=== PATIENT | female | born 1980 | race Caucasian/White ===

== ENCOUNTER 2016-06-15 12:36 | Emergency (ER) ==
[2016-06-15] MEDS ORDERED: DECADRON IM ONE (13:55)
--- NOTE | 2016-06-15 14:06 | PROVIDER DOCUMENTATION ---
HPI-Respiratory General - General Chief Complaint: Cold Symptoms Stated Complaint: WEAK,COUGHING,CONGESTED,BODYACHES Time Seen by Provider: 06/15/16 13:55 Source: patient Allergies/Adverse Reactions: Patient Allergies Allergy/AdvReac Type Severity Reaction Status Date / Time No Known Allergies Allergy Verified 06/15/16 13:12 Home Medications: Home Medication List Medication Instructions Recorded Confirmed Last Taken Type Azithromycin [Zithromax Z-Jose] 250 mg PO DIRECTED #1 pkg 06/15/16 Unknown Rx Guaifenesin/Codeine Phosphate 5 ml PO HS PRN PRN #120 liquid 06/15/16 Unknown Rx [Codeine-Guaifen 10-100 mg/5 ml] Omeprazole 10 mg PO 06/15/16 06/14/16 History - History of Present Illness-Resp Nature of Presenting Problem: 36 yo Bf with 2 days history of cough, today felt feverish and measured temp to 101. Has muscle aches and cough, mild sore throat. Quality of Pain: reports: none Severity in ED: reports: mild Onset/Duration: reports: 24 hours ago Timing: reports: still present Context: reports: other (sick exposure) Cough Quality/Degree: reports: mild Current Respiratory Medication Therapy: Initiated none Modifying Factors: improves with: nothing Associated Symptoms: reports: cough, fever/chills, flu-like symptoms, muscle/ bodyaches. denies: earache, facial pain, shortness of breath, sinus pain, short of breath, wheezing Similar Symptoms Previously?: No Recently seen or treated by another doctor?: No Review of Systems - Adult - REVIEW OF SYSTEMS - ADULT Constitutional: reports: chills, fever. denies: night sweats Eyes: reports: no symptoms reported Ears, Nose, Mouth & Throat: reports: no symptoms reported Cardiovascular: reports: no symptoms reported Respiratory: reports: see HPI Gastrointestinal: reports: no symptoms reported Genitourinary: reports: no symptoms reported Musculoskeletal: reports: see HPI, muscle aches Psychiatric: reports: no symptoms reported Past History - Adult - PAST MEDICAL HISTORY-ADULT Review of Records: reports: Old Records Reviewed, Nursing Assessment Review, Medications Reviewed, Social history reviewed & non-contributory. Major Childhood Illnesses: reports: denies history Endocrine/Immune: reports: Diabetes (boarderline ) - PRIOR SURGERIES/PROCEDURES Surgical/Procedure History: reports: - IMMUNIZATION STATUS Childhood Immunizations: See Nurse Assessment Flu Vaccine: See Nurse Assessment - FAMILY HISTORY Family History: reviewed, not pertinent - SOCIAL HISTORY Smoking: non-smoker Substance Use: none/never Alcohol Use Frequency: never Living Situation: family Physical Exam-General - PHYSICAL EXAM-ADULT Initial Vital Signs Reviewed: Yes - CONSTITUTIONAL General Appearance: no apparent distress - EYES Eyes: PERRL/EOMI, pink conjunctivae - HEAD, EARS, NOSE, MOUTH & THROAT HENMT: moist mucous membranes, normal ENT inspection, TMs normal, pharynx normal - NECK Neck: non-tender, full range of motion. negative: lymphadenopathy - RESPIRATORY Respiratory: chest non-tender, lungs clear, normal breath sounds, no pleuratic chest pain, no respiratory distress, no accessory muscle use - CARDIOVASCULAR Cardiovascular: normal peripheral pulses, regular rate, rhythm, no edema - MUSCULOSKELETAL Extremity: no pedal edema - SKIN Integumentary: normal color - NEUROLOGIC Neurologic: grossly normal - PSYCHIATRIC Psych/Mental Status: normal mood/affect, oriented x 3 Progress - PLAN OF CARE/RESULTS Progress/Plan/Lab Results: Vital Signs Temp Pulse Resp BP Pulse Ox 06/15/16 12:52 98.9 F 94 H 18 127/77 100 No Known Allergies Allergy (Verified 06/15/16 13:12) Azithromycin [Zithromax Z-Jose] 250 mg PO DIRECTED #1 pkg 06/15/16 Guaifenesin/Codeine Phosphate [Codeine-Guaifen 10-100 mg/5 ml] 5 ml PO HS PRN PRN #120 liquid 06/15/16 Omeprazole 10 mg PO 06/15/16 Orders Category Date Time Status DIRECT STREP Stat Lab 06/15/16 12:53 Completed INFLUENZA SCREEN A/B Stat Lab 06/15/16 12:51 Completed Dexamethasone [Decadron] Med 06/15/16 13:55 Discontinued 10 mg IM NOW ONE Departure - Departure Time of Disposition Order: 14:06 DIAGNOSIS: Acute upper respiratory infection, Cough, Muscle ache, Exposure to viral disease Disposition: HOME 01 Certified Medical Emergency: Urgent Condition: Stable Additional Instructions: Tylenol and ibuprofen for fever Prescriptions: Guaifenesin/Codeine Phosphate [Codeine-Guaifen 10-100 mg/5 ml] 5 ml PO HS PRN PRN #120 liquid PRN Reason: Cough Azithromycin [Zithromax Z-Jose] 250 mg PO DIRECTED #1 pkg Referrals: Holli Masters MD [Primary Care Provider] -
[2016-06-15 14:15] VITALS: BP 125/80
== END 2016-06-15 14:15 | disposition home or self-care (01) ==
LOC: ED 12:36
DX: J06.9 Acute upper respiratory infection, unspecified (principal); R05 Cough; M79.1 Myalgia; R09.81 Nasal congestion; R53.1 Weakness; R50.9 Fever, unspecified; Z20.828 Contact with and (suspected) exposure to other viral communicable diseases
CPT/HCPCS: 87081; 87430; 87804